=== PATIENT | female | born 1990 | race Caucasian/White ===

== ENCOUNTER 2017-12-27 00:43 | Emergency (ER) | payer MEDICAID ==
[2017-12-27] MEDS ORDERED: Sodium Chloride 0.9% 1,000 ML IV ONE (01:03)
--- NOTE | 2017-12-27 01:03 | C.PDOC ---
History Of Present Illness Pt is 11 weeks and states and starting to have some abdominal cramps and nausea. no vomiting, no vaginal bleeding. no f/c/v. Time Seen by Provider: 12/27/17 01:02 Chief Complaint (Nursing): Abdominal Pain History Per: Patient History/Exam Limitations: no limitations Onset/Duration Of Symptoms: Hrs Current Symptoms Are (Timing): Still Present Context: Other Severity: Mild Pain Scale Rating Of: 2 Location Of Pain/Discomfort: Diffuse Radiation Of Pain To:: None Quality Of Discomfort: Cramping Associated Symptoms: denies: Fever, Chills, Nausea Exacerbating Factors: None Alleviating Factors: None Last Bowel Movement: Yesterday Recent travel outside of the [place]: No Additional History Per: Patient Abnormal Vaginal Bleeding: No : 4 Para: 3 Past Medical History Reviewed: Historical Data, Nursing Documentation, Vital Signs Vital Signs: Last Vital Signs Temp 98.7 F 12/27/17 06:15 Pulse 85 12/27/17 06:15 Resp 20 12/27/17 06:15 BP 110/69 12/27/17 06:15 Pulse Ox 99 12/27/17 06:15 - Medical History PMH: Denies: Chronic Kidney Disease - [facility] Procedures EXTRACTION OF POC, LOW CERVICAL, OPEN APPROACH (10/17/15) INTRODUCE OF ADHESION BARRIER INTO FEM REPROD, OPEN APPROACH (10/17/15) Family History: States: No Known Family Hx - Social History Hx Alcohol Use: No Hx Substance Use: No - Immunization History Hx Tetanus Toxoid Vaccination: No Hx Influenza Vaccination: No Hx Pneumococcal Vaccination: No Review Of Systems Constitutional: Negative for: Fever, Chills Cardiovascular: Negative for: Chest Pain Respiratory: Negative for: Shortness of Breath Gastrointestinal: Positive for: Abdominal Pain. Negative for: Nausea, Vomiting Genitourinary: Negative for: Dysuria Musculoskeletal: Negative for: Back Pain Skin: Negative for: Rash Neurological: Negative for: Weakness Psych: Negative for: Anxiety Physical Exam - Physical Exam Appears: Non-toxic, No Acute Distress Skin: Warm, Dry Head: Normacephalic Eye(s): bilateral: Normal Inspection Oral Mucosa: Moist Neck: Supple Chest: Symmetrical Cardiovascular: Rhythm Regular Respiratory: No Rales, No Rhonchi, No Wheezing Gastrointestinal/Abdominal: Soft, Tenderness (mild suprapubic) Back: No CVA Tenderness Extremity: Normal ROM Extremity: Bilateral: Atraumatic Neurological/Psych: Oriented x3 Gait: Steady ED Course And Treatment - Laboratory Results Result Diagrams: 12/27/17 01:25 12/27/17 01:25 O2 Sat by Pulse Oximetry: 98 Pulse Ox Interpretation: Normal Reevaluation Time: 06:18 Reassessment Condition: Improved Medical Decision Making Medical Decision Making: Upon provider reevaluation patient is feeling better, is medically stable, and requires no further treatment in the ED at this time. Patient will be discharged home . Counseling was provided and all questions were answered regarding diagnosis and need for follow up with dr slater. There is agreement to discharge plan. Return if symptoms persist or worsen. Disposition Counseled Patient/Family Regarding: Studies Performed, Diagnosis, Need For Followup - Disposition Referrals: Katherine Slater RN [Advanced Practice Nurse] - Disposition: HOME/ ROUTINE Disposition Time: 01:03 Condition: FAIR Additional Instructions: Please return if symptoms recur Instructions: Round Ligament Pain Forms: [facility] (Nepalese) - Clinical Impression Clinical Impression: Abdominal pain during intrauterine
[2017-12-27 01:35] LABS: SQUAMOUS EPITHIAL 1 /hpf (0-5); URINE BILIRUBIN NEGATIVE (NEGATIVE); URINE BLOOD NEGATIVE (NEGATIVE); URINE CLARITY Clear (Clear); URINE COLOR Straw (YELLOW); URINE GLUCOSE (UA) NORMAL (Normal); URINE LEUKOCYTE ESTERASE NEG Leu/uL (Negative); URINE PROTEIN NEGATIVE (NEGATIVE); URINE UROBILINOGEN NORMAL mg/dL (0.2-1.0)
[2017-12-27 01:37] LABS: BASO % 0.3 % (0.0-2.0); EOS # 0.2 K/uL (0.0-0.7); EOS % 2.6 % (0.0-4.0); HEMOGLOBIN 11.9 g/dL (11.0-16.0); LYMPH # 2.1 K/uL (1.0-4.3); LYMPH % 32.9 % (20.0-40.0); MEAN CELL VOLUME 87.9 fL (81.0-99.0); MEAN CORPUSCULAR HEMOGLOBIN 30.4 pg (27.0-31.0); MEAN CORPUSCULAR HGB CONC 34.6 g/dL (33.0-37.0); MEAN PLATELET VOLUME 9.9 fL (7.2-11.7); MONO # 0.5 K/uL (0.0-0.8); MONO % 7.8 % (0.0-10.0); NEUT # 3.5 K/uL (1.8-7.0); NEUT % 56.4 % (50.0-75.0); RBC 3.91 Mil/uL (3.80-5.20); RED CELL DISTRIBUTION WIDTH 13.8 % (11.5-14.5); WHITE BLOOD COUNT 6.2 K/uL (4.8-10.8)
[2017-12-27 01:39] LABS: PROTHROMBIN TIME 11.1 SECONDS (9.7-12.2)
[2017-12-27 02:08] LABS: ALB/GLOB RATIO 1.2 (1.0-2.1); ALBUMIN 3.8 g/dL (3.5-5.0); ALT/SGPT 13 U/L (9-52); AST/SGOT 25 U/L (14-36); BLOOD UREA NITROGEN 12 mg/dL (7-17); GFR AFRICAN-AMERICAN > 60; GFR NON-AFRICAN AMERICAN > 60
[2017-12-27 04:04] VITALS: RESP 20
--- NOTE | 2017-12-27 06:14 | US ---
EXAM: US First Trimester, Transabdominal CLINICAL HISTORY: 27 years old, female; Pain; complicated by abdominal or pelvic pain; Lower; First trimester; Gestational age or lmp: 10/03/17; ; Additional info: Abd pain, hcg >[id number] TECHNIQUE: Real-time transabdominal obstetrical ultrasound of the maternal pelvis and a first trimester with image documentation. COMPARISON: No relevant prior studies available. FINDINGS: Gestation: Single live intrauterine gestation. heart rate of 152 beats per minute. [place]-rump length of 5.1 cm, correlating with gestational age of 11 weeks 6 days. Placenta/amniotic fluid: Low-lying posterior placenta. Normal amniotic fluid. Uterus/cervix: No subchorionic hemorrhage. Closed cervix. Ovaries: Normal ovaries. No adnexal masses. Free fluid: No significant free fluid. IMPRESSION: 1. Single live intrauterine gestation. 2. Incidental/non-acute findings are described above.
[2017-12-27 06:16] VITALS: BP 110/69; PULSE 85; TEMP 98.7
[2017-12-27 06:20] VITALS: O2SAT 98
== END 2017-12-27 06:32 | disposition home or self-care (01) ==
LOC: C.ER 00:43
DX: O26.891 Other specified pregnancy related conditions, first trimester (principal); R10.9 Unspecified abdominal pain; Z3A.11 11 weeks gestation of pregnancy
CPT/HCPCS: 76801; 80053; 81001; 84702; 85025; 85610; 85730; 86850; 86900; 96360; 99285; J7040

== ENCOUNTER 2018-07-04 08:16 | Inpatient (IN) | payer MEDICAID ==
[2018-07-04] MEDS ORDERED: Sodium Citrate/Citric Acid 15 ml Sol PO ONE (09:15)
[2018-07-04] MEDS ORDERED: Lactated Ringer's 1,000 ML IV ONE (09:15)
[2018-07-04] MEDS ORDERED: cefOXitin IV 2 gm in Dextrose 2 GM/50 ML BAG IVPB ONE (09:30)
[2018-07-04 09:35] LABS: BASO % 0.2 % (0.0-2.0); EOS # 0.1 K/uL (0.0-0.7); EOS % 1.4 % (0.0-4.0); HEMOGLOBIN 11.8 g/dL (11.0-16.0); LYMPH # 1.5 K/uL (1.0-4.3); LYMPH % 24.6 % (20.0-40.0); MEAN CELL VOLUME 89.6 fL (81.0-99.0); MEAN CORPUSCULAR HEMOGLOBIN 30.7 pg (27.0-31.0); MEAN CORPUSCULAR HGB CONC 34.3 g/dL (33.0-37.0); MEAN PLATELET VOLUME 10.4 fL (7.2-11.7); MONO # 0.4 K/uL (0.0-0.8); MONO % 6.4 % (0.0-10.0); NEUT % 67.4 % (50.0-75.0); NRBC % 0.1 % (0.0-2.0); RBC 3.84 Mil/uL (3.80-5.20); RED CELL DISTRIBUTION WIDTH 14.1 % (11.5-14.5)
[2018-07-04] MEDS ORDERED: cefOXitin IV 2 gm in Saline 2 GM/50 ML BAG IVPB ONE (09:46)
[2018-07-04] MEDS ORDERED: Sodium Citrate/Citric Acid 15 ml Sol ONE (09:46)
[2018-07-04] MEDS ORDERED: Oxytocin 10 Units/ml Inj ONE (09:47)
--- NOTE | 2018-07-04 09:49 | OBADHP ---
Datetime: 07/04/2018 09:36 Admit Comment, IP Provider: 27 yo female with an IUP at 39.1 weeks and Hx of 2 Previous C/S 's Admitted for elective repeat C/S. Admit to adequate FM and denies LOF, VB or VD. Denies any active HSV lesions and took Acyclovir for 1 week, per patient PMHx: + HSV 2 PSHx: C/S x 2 Meds PNV Social HX Denies x 3 Family HX NC A/P: Admitted for elective repeat C/S NST Reactive Not in labor Anestheisa consulted Pre-Cesion orders entered Counseled re procedure, risks and possible complications and verbalized understanding and request to proceed and signed the consent. Anesthesia and OR aware Will proceed Pelvic Type - PN: Adequate Extremities - PN: Normal Abdomen - PN: Normal Back - PN: Normal Breast - PN: Not Done Lungs - PN: Normal Heart - PN: Normal Thyroid - PN: Normal Neurologic - PN: Normal HEENT - PN: Normal General - PN: Normal Presentation-Admit: Vertex FHR - Baseline A Provider: 140 Membranes, Provider: Intact Gestation - Est Wks by US: 39.1 IP Hx Assessment: PNC records reviewed Vital Signs Provider: Reviewed; Within Normal Limits IP Chief Complaint: Scheduled Section NICHD Variability Prov Fetus A: Moderate 6-25bpm NICHD Accel Fetus A IP Provider: 10X10 NICHD Decel Fetus A IP Provider: None Dilatation, Provider: NA Genitourinary Exam: Normal DTRs - PN: Normal EGA AdmitDate IP: 39.1 IP Adm Impression: Term, intrauterine ; Intact Membranes IP Admit Plan: Admit to unit; Initiate Section protocol
[2018-07-04] MEDS ORDERED: Oxytocin 20 units in LR 2,000 ML IV ONE (10:02)
[2018-07-04 10:03] LABS: ALB/GLOB RATIO 1.1 (1.0-2.1); ALBUMIN 3.5 g/dL (3.5-5.0); ALT/SGPT 25 U/L (9-52); AST/SGOT 22 U/L (14-36); BLOOD UREA NITROGEN 5 mg/dL (7-17); CALCIUM 8.7 mg/dl (8.6-10.4); GFR NON-AFRICAN AMERICAN > 60
[2018-07-04 10:12] LABS: SQUAMOUS EPITHIAL 3 /hpf (0-5); URINE BACTERIA RARE (<OCC); URINE BILIRUBIN NEGATIVE (NEGATIVE); URINE BLOOD NEGATIVE (NEGATIVE); URINE CLARITY Clear (Clear); URINE COLOR Yellow (YELLOW); URINE GLUCOSE (UA) NORMAL (Normal); URINE LEUKOCYTE ESTERASE NEG Leu/uL (Negative); URINE PROTEIN NEGATIVE (NEGATIVE); URINE UROBILINOGEN NORMAL mg/dL (0.2-1.0)
[2018-07-04 10:23] LABS: BARBITURATES, UR NEGATIVE (NEGATIVE); BENZODIAZEPINES, UR NEGATIVE (NEGATIVE); OPIATES, UR NEGATIVE (NEGATIVE); PHENCYCLIDINE, UR NEGATIVE (NEGATIVE)
[2018-07-04] MEDS ORDERED: Oxycodone/Acetaminophen 5/325 mg Tab PO PRN (11:42)
[2018-07-04] MEDS: Simethicone 80 mg Chewtab PO SCH ×3 (15:16→22:44)
[2018-07-04] MEDS ORDERED: Morphine 1 mg/ml preservative-free Inj(Duramorph) ONE (15:56)
--- NOTE | 2018-07-04 23:42 | OBDS ---
DELIVERY PERSONNEL Delivery Doctor: Dr Mahmood Scrblanca Nurse: Gisselle Hall News Director: Kamila Blackwell RN Anesthesiologist: Dr Harmon Resident: Zeeshan Alfonso DO MATERNAL INFORMATION Delivery Anesthesia: Spinal Medications in Delivery: 40 units of pitocin in 1000 ml LR Estimated Blood Loss (ml): 600 Placenta Cultured: No Maternal Complications: None Other Maternal Complications: Multiple Pelvic Adhesions RN Comments: liveborn male infant, breech, repeat , apgars 9/9; and skin to s kin initiated in OR; mother and transfered as a couplet to recovery in stable condition Provider Comments: Repeat LTC C/S with delivery of a viable Male from Double Footling Breech position with Sacrum to the right. CNC x 1 reduced before delivery of the head which was completed w ithout difficulty. Placenta, Cord blood and chord Ph sent to Lab EBL 600 mls Multiple EZEKIEL Pt and both tolerated the procedure well and remained in LDR room in S_S condition. LABOR SUMMARY EDC: 07/10/2018 00:00 No. Babies in Womb: 1 Attempted: No LABOR INFORMATION Reason for Induction: Not Applicable Group B Beta Strep: Not Done Steroids Given: None Reason Steroids Not Administered: Not Applicable MEMBRANES Membranes Rupture Method: Artificial Rupture of Membranes: 07/04/2018 10:40 Length of Rupture (hrs): 0.03 Amniotic Fluid Color: Clear Amniotic Fluid Amount: Moderate Amniotic Fluid Odor: None STAGES OF LABOR Stage 3 hrs: 0 Stage 3 min: 2 CSECTION DELIVERY Primary Indication: Term Other Primary Indication: Previous C/S x 2 Secondary Indication: Repeat Elective CSection Urgency: Elective CSection Incidence: Repeat Labor: No Labor Elective: Elective CSection Incision: Lower Uterine Transverse BABY A INFORMATION Delivery Date/Time: 07/04/2018 10:42 Method of Delivery: Born in Route : No : N/A Forceps: N/A Vacuum Extraction: N/A Shoulder Dystocia : No SHOULDER DYSTOCIA BABY A Delivery Date/Time: 07/04/2018 10:42 PRESENTATION/POSITION BABY A Presentation: Breech Breech Presentation: Double Footling PLACENTA INFORMATION BABY A Placenta Delivery Time : 07/04/2018 10:44 Placenta Method of Delivery: Manual Removal Placenta Status: Delivered SCORES BABY A Heart Rate 1 min: >100 bpm Resp Effort 1 min: Good Cry Reflex Irritability 1 min: Cough or Sneeze or Pulls Away Muscle Tone 1 min: Active Motion Color 1 min: Body [place], Extremities Blue Resuscitation Effort 1 min: Tactile Stimulation SCORE 1 MIN: 9 Heart Rate 5 min: >100 bpm Resp Effort 5 min: Good Cry Reflex Irritability 5 min: Cough or Sneeze or Pulls Away Muscle Tone 5 min: Active Motion Color 5 min: Body [place], Extremities Blue Resuscitation Effort 5 min: N/A SCORE 5 MIN: 9 INFANT INFORMATION BABY A Gestational Age at Delivery: 39.1 Gestational Status: Term Outcome : Liveborn Infant Condition : Stable Infant Sex: Male IDENTIFICATION/MEDS BABY A ID Band Number: [id number] ID Band Location: Left Leg; Left Arm Sensor Applied: Yes Sensor Number: [id number] Vitamin K Given : Not Given Erythromycin Given: Not Given WEIGHT/LENGTH BABY A Infant Birthweight (gms): 3350 Infant Weight (lb): 7 Weight (oz): 6 Infant Length Inches: 20.00 Infant Length cms: 50.8 CORD INFORMATION BABY A No. Cord Vessels: 3 Nuchal Cord : Around Neck x1, Loose Cord pH Baby Venous: 7.35 Cord Blood Taken: Yes Suction: Mouth; Nose ASSESSMENT BABY A Complications: None Physical Findings at Delivery: Within Normal Limits Respirations: Appears Normal Lumber Tailer/ALS Called : No Care By: Madai Ledesma RN Transferred To: Remains with Mother
[2018-07-05] MEDS: Oxycodone/Acetaminophen 5/325 mg Tab PO PRN ×3 (02:37→17:54)
[2018-07-05 08:40] LABS: HEMOGLOBIN 11.3 g/dL (11.0-16.0); MEAN CELL VOLUME 90.3 fL (81.0-99.0); MEAN CORPUSCULAR HGB CONC 34.3 g/dL (33.0-37.0); MEAN PLATELET VOLUME 10.4 fL (7.2-11.7); RBC 3.65 Mil/uL (3.80-5.20); RED CELL DISTRIBUTION WIDTH 14.5 % (11.5-14.5); WHITE BLOOD COUNT 6.5 K/uL (4.8-10.8)
[2018-07-05] MEDS: Simethicone 80 mg Chewtab PO SCH ×4 (09:29→21:51)
[2018-07-05] MEDS: Prenatal Multivit/Folic Acid/Iron Tab PO SCH (09:29)
[2018-07-05] MEDS ORDERED: Folic Acid/Ascorbic Acid/Ferrous Sulfate 1 Tab PO SCH (10:00)
--- NOTE | 2018-07-05 14:52 | OBPPN ---
Datetime: 07/05/2018 07:09 PP Pain Prov: Within normal limits PP Nausea Prov: Denies PP Flatus Prov: Yes PP BM Prov: No PP Heart Prov: Normal PP Lungs Prov: Normal PP Abdomen/Uterus Prov: Normal PP Lochia Prov: Normal PP Vulva/Perineum Prov: Normal PP CVA Tenderness Prov: Normal PP Extremities Prov: Normal PP C/S Incision Prov: Normal PP Progress Prov: Normal PP Comments Phys Exam Prov: Gen: sitting in chair in NAD Heart: S1, S2, RRR Chest: CTA b/l Abd: soft, +BS, appropriate tender to palpate, dressing applied to surgical incision, appears dionna n, no erythema, no swelling, no discahrge. Fundal height at level of umbilicus Ext: peripheral pulses palpable, no edema or cyanosis PP Impression Prov: Normal progression PP Plan Prov: Continue present management PP Progress Note Prov: Patient seen and examined at bedside. POD#1 s/p scheduled repeat C/S at 39.1 GA. Patient has no complaints. Tolerated her liquid diet and will start her regular diet today. Passe d flatus, no BM yet. Ambulating out of bed to chair. Mild abdominal pain 5/10, received one dose of P ercocet last night when it was 8/10. Denied fever, chills, cough, nausea, vomiting. No problems breas t feeding. Vitals are stable. Baby is doing well. A/P: 27 y/o POD#1 s/p scheduled repeat C/S at 39.1 GA Normal PP progression Continue PP management counseling Pain management Encourage ambulation Diet advanced to regular Case reviewed and discussed with attending Dr Dg Alfonso, , PGY1 Attending Note: patient seen and evaluated by me with the Resident. I agree with the above as docu mented. Patient is clinically stable. Vital Signs Provider PP: Reviewed; Within Normal Limits
[2018-07-05 17:49] VITALS: RESP 18
[2018-07-06] MEDS: Simethicone 80 mg Chewtab PO SCH ×4 (09:03→21:45)
[2018-07-06] MEDS: Prenatal Multivit/Folic Acid/Iron Tab PO SCH (09:04)
[2018-07-06] MEDS: Oxycodone/Acetaminophen 5/325 mg Tab PO PRN (15:06)
--- NOTE | 2018-07-06 15:51 | CP.PCM.DIS ---
Provider - Provider Date of Admission: 07/04/18 08:24 Attending physician: Amber Mahmood DO Time Spent in preparation of Discharge (in minutes): 45 Hospital Course - Lab Results Lab Results: Most Recent Lab Values WBC 6.5 K/uL (4.8-10.8) 07/05/18 08:34 RBC 3.65 Mil/uL (3.80-5.20) L 07/05/18 08:34 Hgb 11.3 g/dL (11.0-16.0) 07/05/18 08:34 Hct 32.9 % (34.0-47.0) L 07/05/18 08:34 MCV 90.3 fL (81.0-99.0) 07/05/18 08:34 MCH 31.0 pg (27.0-31.0) 07/05/18 08:34 MCHC 34.3 g/dL (33.0-37.0) 07/05/18 08:34 RDW 14.5 % (11.5-14.5) 07/05/18 08:34 Plt Count 165 K/uL (130-400) 07/05/18 08:34 MPV 10.4 fL (7.2-11.7) 07/05/18 08:34 Neut % (Auto) 67.4 % (50.0-75.0) 07/04/18 09:24 Lymph % (Auto) 24.6 % (20.0-40.0) 07/04/18 09:24 [place] % (Auto) 6.4 % (0.0-10.0) 07/04/18 09:24 Eos % (Auto) 1.4 % (0.0-4.0) 07/04/18 09:24 Baso % (Auto) 0.2 % (0.0-2.0) 07/04/18 09:24 Neut # (Auto) 4.0 K/uL (1.8-7.0) 07/04/18 09:24 Lymph # (Auto) 1.5 K/uL (1.0-4.3) 07/04/18 09:24 [place] # (Auto) 0.4 K/uL (0.0-0.8) 07/04/18 09:24 Eos # (Auto) 0.1 K/uL (0.0-0.7) 07/04/18 09:24 Baso # (Auto) 0.0 K/uL (0.0-0.2) 07/04/18 09:24 Sodium 137 mmol/L (132-148) 07/04/18 09:39 Potassium 4.2 mmol/L (3.6-5.2) 07/04/18 09:39 Chloride 105 mmol/L (98-107) 07/04/18 09:39 Carbon Dioxide 24 mmol/L (22-30) 07/04/18 09:39 Anion Gap 12 (10-20) 07/04/18 09:39 BUN 5 mg/dL (7-17) L 07/04/18 09:39 Creatinine 0.4 mg/dL (0.7-1.2) L 11 09:39 Est GFR ( Amer) > 60 07/04/18 09:39 Est GFR (Non-Af Amer) > 60 07/04/18 09:39 Random Glucose 82 mg/dL (65-105) 07/04/18 09:39 Calcium 8.7 mg/dl (8.6-10.4) 07/04/18 09:39 Magnesium 1.6 mg/dL (1.6-2.3) 07/04/18 09:39 Total Bilirubin 0.7 mg/dL (0.2-1.3) 07/04/18 09:39 AST 22 U/L (14-36) 07/04/18 09:39 ALT 25 U/L (9-52) 07/04/18 09:39 Alkaline Phosphatase 204 U/L (38-126) H D 07/04/18 09:39 Total Protein 6.7 g/dL (6.3-8.3) 07/04/18 09:39 Albumin 3.5 g/dL (3.5-5.0) 07/04/18 09:39 Globulin 3.2 gm/dL (2.2-3.9) 07/04/18 09:39 Albumin/Globulin Ratio 1.1 (1.0-2.1) 07/04/18 09:39 Urine Color Yellow (YELLOW) 07/04/18 09:55 Urine Clarity Clear (Clear) 07/04/18 09:55 Urine pH 7.0 (5.0-8.0) 07/04/18 09:55 Ur Specific [place] 1.016 (1.003-1.030) 07/04/18 09:55 Urine Protein Negative mg/dL (NEGATIVE) 07/04/18 09:55 Urine Glucose (UA) Normal mg/dL (Normal) 07/04/18 09:55 Urine Ketones Negative mg/dL (NEGATIVE) 07/04/18 09:55 Urine Blood Negative (NEGATIVE) 07/04/18 09:55 Urine Nitrate Negative (NEGATIVE) 07/04/18 09:55 Urine Bilirubin Negative (NEGATIVE) 07/04/18 09:55 Urine Urobilinogen Normal mg/dL (0.2-1.0) 07/04/18 09:55 Ur Leukocyte Esterase Neg [place]/uL (Negative) 07/04/18 09:55 Urine WBC (Auto) 1 /hpf (0-5) 07/04/18 09:55 Urine RBC (Auto) < 1 /hpf (0-3) 07/04/18 09:55 Ur Squamous Epith Cells 3 /hpf (0-5) 07/04/18 09:55 Urine Bacteria Rare (<OCC) 07/04/18 09:55 Urine Opiates Screen Negative (NEGATIVE) 07/04/18 09:55 Urine Methadone Screen Negative (NEGATIVE) 07/04/18 09:55 Ur Barbiturates Screen Negative (NEGATIVE) 07/04/18 09:55 Ur Phencyclidine Scrn Negative (NEGATIVE) 07/04/18 09:55 Ur Amphetamines Screen Negative (NEGATIVE) 07/04/18 09:55 U Benzodiazepines Scrn Negative (NEGATIVE) 07/04/18 09:55 U Oth Cocaine Metabols Negative (NEGATIVE) 07/04/18 09:55 U Cannabinoids Screen Negative (NEGATIVE) 07/04/18 09:55 RPR Nonreactive (NONREACTIVE) 07/04/18 09:24 HIV 1&2 Antibody Screen Negative (NEGATIVE) 07/04/18 09:24 Blood Type A POSITIVE 07/04/18 09:24 Antibody Screen Negative 07/04/18 09:24 - Hospital Course Hospital Course: 27 y/o female with IUP at 39.1 weeks presented for scheduled repeat C/S. Patient admit to adequate movement. She denied vaginal bleeding, vaginal discharge, leak of fluid or ROM. Patient had history of HSV2 for which she took a course of Acyclovir but denied active disease. Patient admitted for elective repeat C/S, consent obtained from the patient after explainning risks and complications, patient verbalized understanding. anesthesia consulted, Discharge Plan - Follow Up Plan Condition: GOOD Disposition: HOME/ ROUTINE
--- NOTE | 2018-07-06 19:56 | OBPPN ---
Datetime: 07/06/2018 07:00 PP Pain Prov: Within normal limits PP Nausea Prov: Denies PP Flatus Prov: Yes PP BM Prov: No PP Heart Prov: Normal PP Lungs Prov: Normal PP Abdomen/Uterus Prov: Normal PP Lochia Prov: Normal PP Vulva/Perineum Prov: Normal PP CVA Tenderness Prov: Normal PP Extremities Prov: Normal PP C/S Incision Prov: Normal PP Progress Prov: Normal PP Comments Phys Exam Prov: Gen: in NAD Heart: S1, S2, RRR Chest: CTA b/l Abd: soft, +BS, appropriate tender to palpate, surgical incision appears clean, charan in place, no erythema, no swelling, no discahrge. Fundal height one finger below level of umbilicus Ext: peripheral pulses palpable, no edema or cyanosis PP Impression Prov: Normal progression PP Plan Prov: Continue present management PP Progress Note Prov: Patient seen and examined at bedside. POD#2 s/p scheduled repeat C/S at 39.1 GA. Patient has no complaints. Tolerating her regular diet. Passed flatus, no BM yet. Ambulating in th e room. Mild abdominal pain 4/10, received one dose of Percocet last night when it was 7/10. Denied f ever, chills, cough, nausea, vomiting. No problems breast feeding. Vitals are stable. Baby is doing w ell. Anticipate D/C home in AM A/P: 27 y/o POD#2 Stable and Satisfactory condition and recovery Normal PP progression Continue PP management/Advance care counseling Pain management Encourage ambulation Encourage po water hydration Case reviewed and discussed with attending Dr Timoteo Alfonso, DO, PGY1 IP PP Procedures: None Vital Signs Provider PP: Reviewed; Within Normal Limits
[2018-07-07 09:38] VITALS: BP 106/71; PULSE 82; TEMP 97.5; O2SAT 98
[2018-07-07] MEDS: Prenatal Multivit/Folic Acid/Iron Tab PO SCH (10:10)
[2018-07-07] MEDS: Simethicone 80 mg Chewtab PO SCH (10:10)
[2018-07-07] MEDS ORDERED: Influenza Vaccine 60 MCG/0.5 ML SYR (3 yr & up) IM ONE (10:10)
--- NOTE | 2018-07-07 18:09 | OBDCSUM ---
Datetime: 07/07/2018 11:47 Discharged to, Provider: Home Follow up at, Provider: princess Disch Instr Activity: Normal activity Disch Instr Diet: Regular Discharge Instructions, Provider: Routine instructions given Discharge Diagnosis, Provider: Term Delivered Discharge Time: 07/07/2018 13:15 Follow up in weeks, Provider: 1 week Disch Referrals: None Contraception discussed, Prov: Yes Disch Activity Restrictions: No lifting; Minimize stair-climbing; No sexual activity; Nothing in vag kay - [place], tampons, douche Discharge Comment, Provider: POD # 3 S/P repeat C/S with EZEKIEL and delivery of viable Male OK Stable and Satisfactory condition and recovery D/C home with instructions and Rx for Motrin and Percocet Advised to increase po water intake and to continye Pelvic rest x 6-8 weeks Will f/up in clinic in 7-10 days or prn Discharge Diagnosis Prov Other: Repeat C/Section Lysis of Adhesions Contraception after Delivery: Undecided Datetime: 07/07/2018 10:21 Discharged to, Provider: Home Disch Instr Activity: Normal activity Disch Instr Diet: Regular Discharge Instructions, Provider: Routine instructions given Discharge Diagnosis, Provider: Term Delivered Follow up in weeks, Provider: 7 days Disch Referrals: None Disch Activity Restrictions: No lifting Discharge Comment, Provider: 27 y/o female with IUP at 39.1 weeks presented for scheduled re peat C/S. Patient admit to adequate FM. She denied vaginal bleeding, vaginal discharge, leak of fluid or ROM. Patient had history of HSV2 for which she took a course of Acyclovir but denied active disea se. Patient admitted for elective repeat C/S, consent obtained from the patient after explaining risk s and complications, patient verbalized understanding. Post operatively, patient is hemodynamically s table, H/H normal, tolerated diet, passed flatus and had bowel movement, tolerating pain that was con trolled with mortin and percocet. Baby male is doing well, breast fed, mother refused circumcission. Patient and baby are clinically stable and ready for discharge today. Patient to follow up in outpati ent clinic, discharge instructions given, pain med Mortin and Percocet given. Flu vaccine give to mot her upon discharge. Case reviewed with attending Dr Timoteo Alfonso, DO, PGY1 Contraception after Delivery: Undecided
== END 2018-07-07 13:15 | disposition home or self-care (01) | DRG 540 ==
LOC: C.4D 08:24 → EDBD 08:24 → C.4M 14:00
PROVIDERS: ADMIT Obstetrics & Gynecology; ATTEND Obstetrics & Gynecology
PROC: 10D00Z1 Extraction of Products of Conception, Low, Open Approach (ICD-10-PCS; principal; 2018-07-04)
DX: O34.211 Maternal care for low transverse scar from previous cesarean delivery (principal); N73.6 Female pelvic peritoneal adhesions (postinfective); O32.8XX0 Maternal care for other malpresentation of fetus, not applicable or unspecified; O69.81X0 Labor and delivery complicated by cord around neck, without compression, not applicable or unspecified; Z87.42 Personal history of other diseases of the female genital tract; Z86.19 Personal history of other infectious and parasitic diseases; Z3A.39 39 weeks gestation of pregnancy; Z37.0 Single live birth